=== PATIENT | female | born 1995 | race Two or more races ===

== ENCOUNTER 2018-04-04 18:56 | Emergency (ER) | payer MEDICAID ==
[~2018-04-04] VITALS: Ht 167.6 cm; Wt 61.2 kg
[2018-04-04 20:38] VITALS: BP 110/73
[2018-04-04] MEDS ORDERED: LIDOCAINE 1%-EPI 1:100,000 20 ML VIAL ONE (20:51)
[2018-04-04] MEDS ORDERED: HYDROCODONE/APAP 5/325MG 1 EACH TABLET ONE (20:51)
[2018-04-04] MEDS ORDERED: LIDOCAINE HCL/MPF 1% 30 ML VIAL IJ ONE (20:52)
[2018-04-04] MEDS: HYDROCODONE/APAP 5/325MG 1 EACH TABLET PO ONE (20:54)
[2018-04-04] MEDS: LIDOCAINE HCL/PF 1% 30 ML VIAL IM ONE (21:05)
--- NOTE | 2018-04-04 21:05 | NUR ---
[facility]AC YVES AT BEDSIDE FOR I&D FOR ABSCESS
[2018-04-04] MEDS ORDERED: TDAP [DIPH/PERTUSSIS/TET] 0.5 ML VIAL IM ONE (21:16)
[2018-04-04] MEDS: TDAP [DIPH/PERTUSSIS/TET] 0.5 ML VIAL IM ONE (21:29)
--- NOTE | 2018-04-04 21:32 | NUR ---
Patient discharged to home in stable condition. Written and verbal after care instructions given. Patient verbalizes understanding of instruction. ambulatory with a steady gait. instructed pt not to drive. pt verbalize understanding.
== END 2018-04-04 21:33 | disposition home or self-care (01) ==
LOC: ER 18:59
DX: L02.213 Cutaneous abscess of chest wall (principal)
CPT/HCPCS: 90715; A4606; A6402; A6407; J3490; Z7610

== ENCOUNTER 2018-04-06 07:47 | Emergency (ER) | payer MEDICAID ==
[~2018-04-06] VITALS: Ht 167.6 cm; Wt 61.7 kg
[2018-04-06 07:50] VITALS: BP 115/66
== END 2018-04-06 08:35 | disposition home or self-care (01) ==
LOC: ER 07:49
DX: Z48.00 Encounter for change or removal of nonsurgical wound dressing (principal); Z60.2 Problems related to living alone
CPT/HCPCS: A4606; Z7610